=== PATIENT | male | born 1955 | race Caucasian/White ===

== ENCOUNTER 2022-03-13 14:55 | Inpatient (IN) | payer MEDICARE ==
[2022-03-13] VITALS (22 sets, daily range): BP systolic 83–116; BP diastolic 48–96
[~2022-03-13] VITALS: Ht 188 cm; Wt 77.1 kg
[2022-03-13 16:20] LABS: BASOPHILS % 0.5 % (0.0-1.0); EOSINOPHILS # (AUTO) 0.2 (0.0-0.4); EOSINOPHILS % 4.1 % (0.0-6.0); HEMATOCRIT 23.9 % (38.2-49.6); HEMOGLOBIN 7.3 g/dL (14.0-18.0); LYMPHOCYTES # (AUTO) 0.4 (1.0-3.2); LYMPHOCYTES % 7.9 % (18.0-39.1); MEAN CORPUSCULAR HEMOGLOBIN 34.3 pg (28-32); MEAN CORPUSCULAR HGB CONC 30.5 g/dL (31-35); MEAN CORPUSCULAR VOLUME 112.2 fL (81-99); MONOCYTES # (AUTO) 0.4 (0.2-0.8); MONOCYTES % 8.6 % (4.4-11.3); NEUTROPHILS # (AUTO) 3.5 (2.1-6.9); NEUTROPHILS % 78.4 % (38.7-80.0); PLATELET COUNT 67 x10e3/uL (140-360); RED BLOOD COUNT 2.13 x10e6/uL (4.3-5.7); RED CELL DISTRIBUTION WIDTH 14.7 % (11.7-14.4)
[2022-03-13 16:35] LABS: INR 1.3; PARTIAL THROMBOPLASTIN TIME 32.9 seconds (23.8-35.5); PROTHROMBIN TIME 17.3 seconds (11.9-14.5)
[2022-03-13 16:42] LABS: ALBUMIN 3.1 g/dL (3.5-5.0); ANION GAP 21.2 mmol/L (8-16); CALCIUM 8.2 mg/dL (8.4-10.2); CREATININE, SERUM 7.28 mg/dL (0.72-1.25); POTASSIUM 5.2 mmol/L (3.5-5.1)
[2022-03-13] MEDS ORDERED: HEPARIN SOD (PORCINE) 1000 UNIT/ML 30ML ONE (16:44)
[2022-03-13] MEDS ORDERED: LIDOCAINE HCL 2% LOCAL 20 ML VIAL ONE (16:44)
[2022-03-13] MEDS ORDERED: HEPARIN SOD/SOD CHLORIDE 2,000 ML ONE (16:45)
[2022-03-13] MEDS: PROPOFOL IV EMULSION 10MG/ML 100 ML IV SCH ×2 (16:45→23:40)
[2022-03-13] MEDS ORDERED: SODIUM CHLORIDE 0.9% 1000ML 1,000 ML ONE (16:45)
[2022-03-13] MEDS ORDERED: NITROGLYCERIN/D5W 200 MCG/ML 250 ML ONE (16:45)
[2022-03-13] MEDS ORDERED: IOPAMIDOL 370 MG/ML 100 ML INFUS..BTL INJ ONE ×2 (16:45→17:34)
[2022-03-13] MEDS: Pantoprazole IV 40 MG in SODIUM CHLORIDE 0.9% 50ML 50 ML IV SCH ×2 (16:45→22:50)
[2022-03-13 16:55] LABS: CREATINE KINASE MB 11.1 ng/mL (0-5.0)
[2022-03-13] MEDS ORDERED: SODIUM CHLORIDE 0.9% 250ML 250 ML IV ONE (17:00)
[2022-03-13] MEDS ORDERED: FENTANYL CITRATE/PF 100MCG/2 ML INJ ONE (17:01)
[2022-03-13] MEDS ORDERED: FUROSEMIDE INJ 10 MG/ML 4 ML VIAL ONE (17:01)
[2022-03-13] MEDS ORDERED: MIDAZOLAM HCL 2 MG/2 ML VIAL ONE (17:01)
[2022-03-13] MEDS ORDERED: NOREPINEPHRINE 8 MG/D5W 250 ML 0 ML ONE (17:17)
[2022-03-13] MEDS: PIPERACILLIN/TAZOBACTAM 2.25 GM in SODIUM CHLORIDE 0.9% 50ML 50 ML IV SCH (18:00)
[2022-03-13] MEDS ORDERED: ACETAMINOPHEN 325 MG TAB PO PRN (18:15)
[2022-03-13] MEDS ORDERED: SODIUM CHLORIDE 0.9% 1000ML 2,000 ML ONE (18:54)
[2022-03-13] MEDS ORDERED: SODIUM CHLORIDE 0.9% 1000ML 2,000 ML IV PRN (19:30)
[2022-03-14] VITALS (77 sets, daily range): BP systolic 96–130; BP diastolic 46–86
[2022-03-14] MEDS: PIPERACILLIN/TAZOBACTAM 2.25 GM in SODIUM CHLORIDE 0.9% 50ML 50 ML IV SCH ×3 (01:05→17:40)
[2022-03-14 01:34] LABS: HEMATOCRIT 24.3 % (38.2-49.6)
[2022-03-14 01:55] LABS: CREATINE KINASE MB 8.3 ng/mL (0-5.0)
[2022-03-14] MEDS: Pantoprazole IV 40 MG in SODIUM CHLORIDE 0.9% 50ML 50 ML IV SCH ×5 (02:37→23:49)
[2022-03-14] MEDS ORDERED: SODIUM CHLORIDE 0.9% 250ML 250 ML IV PRN (03:45)
[2022-03-14 05:43] LABS: BASOPHILS % 0.5 % (0.0-1.0); EOSINOPHILS # (AUTO) 0.1 (0.0-0.4); EOSINOPHILS % 2.8 % (0.0-6.0); HEMATOCRIT 24.6 % (38.2-49.6); LYMPHOCYTES # (AUTO) 0.6 (1.0-3.2); LYMPHOCYTES % 13.2 % (18.0-39.1); MEAN CORPUSCULAR HEMOGLOBIN 34.2 pg (28-32); MEAN CORPUSCULAR HGB CONC 32.9 g/dL (31-35); MEAN CORPUSCULAR VOLUME 103.8 fL (81-99); MONOCYTES # (AUTO) 0.5 (0.2-0.8); MONOCYTES % 12.7 % (4.4-11.3); NEUTROPHILS % 70.6 % (38.7-80.0); PLATELET COUNT 51 x10e3/uL (140-360); RED BLOOD COUNT 2.37 x10e6/uL (4.3-5.7); RED CELL DISTRIBUTION WIDTH 17.2 % (11.7-14.4)
[2022-03-14 05:53] LABS: HEMOGLOBIN 8.1 g/dL (14.0-18.0)
[2022-03-14 06:06] LABS: ALBUMIN 2.8 g/dL (3.5-5.0); ANION GAP 16.7 mmol/L (8-16); CALCIUM 7.9 mg/dL (8.4-10.2); CREATININE, SERUM 5.65 mg/dL (0.72-1.25); MAGNESIUM 2.1 MG/DL (1.3-2.1); POTASSIUM 4.7 mmol/L (3.5-5.1)
[2022-03-14 06:28] LABS: CREATINE KINASE MB 5.9 ng/mL (0-5.0)
[2022-03-14 07:08] LABS: FERRITIN 707.15 ng/mL (21.81-274.66); THYROID STIMULATING HORMONE 1.624 uIU/mL (0.350-4.940)
[2022-03-14 08:44] LABS: ABG PCO2 29 mmHg (35-45); ABG PH 7.59 (7.35-7.45); ABG PO2 280 mmHg (80-105)
[2022-03-14 08:45] LABS: ABG HCO3 28 mmol/L (22-26); ABG TCO2 29
[2022-03-14 08:58] LABS: EOSINOPHILS % (MANUAL) 2 % (0-7); LYMPHOCYTES % (MANUAL) 10 % (19-48); MONOCYTES % (MANUAL) 9 % (3.4-9.0); NEUTROPHILS % (MANUAL) 78 % (40-74)
[2022-03-14 09:00] LABS: ANISOCYTOSIS MODERATE; PLATELET ESTIMATE MODERATELY DECREASED; PLATELET MORPHOLOGY COMMENT NORMAL; RBC MORPHOLOGY COMMENT ABNORMAL
[2022-03-14 09:01] LABS: OVALOCYTES FEW
[2022-03-14] MEDS ORDERED: SODIUM CHLORIDE 0.9% 250ML 250 ML IV ONE (10:15)
[2022-03-14 15:15] LABS: HEMATOCRIT 29.5 % (38.2-49.6); HEMOGLOBIN 9.7 g/dL (14.0-18.0)
[2022-03-14] MEDS: LATANOPROST(OPTH) 2.5 ML BTL OP SCH (21:18)
[2022-03-15] VITALS (25 sets, daily range): BP systolic 86–126; BP diastolic 51–68
[2022-03-15 00:27] LABS: HEMATOCRIT 28.3 % (38.2-49.6); HEMOGLOBIN 9.2 g/dL (14.0-18.0)
[2022-03-15] MEDS: PIPERACILLIN/TAZOBACTAM 2.25 GM in SODIUM CHLORIDE 0.9% 50ML 50 ML IV SCH ×3 (02:00→17:07)
[2022-03-15] MEDS: Pantoprazole IV 40 MG in SODIUM CHLORIDE 0.9% 50ML 50 ML IV SCH ×5 (05:00→23:45)
[2022-03-15 06:18] LABS: BASOPHILS % 0.9 % (0.0-1.0); EOSINOPHILS # (AUTO) 0.3 (0.0-0.4); EOSINOPHILS % 5.6 % (0.0-6.0); HEMATOCRIT 30.1 % (38.2-49.6); HEMOGLOBIN 9.6 g/dL (14.0-18.0); LYMPHOCYTES # (AUTO) 0.5 (1.0-3.2); LYMPHOCYTES % 11.2 % (18.0-39.1); MEAN CORPUSCULAR HGB CONC 31.9 g/dL (31-35); MEAN CORPUSCULAR VOLUME 106.7 fL (81-99); MONOCYTES # (AUTO) 0.6 (0.2-0.8); MONOCYTES % 13.3 % (4.4-11.3); NEUTROPHILS # (AUTO) 3.2 (2.1-6.9); NEUTROPHILS % 68.8 % (38.7-80.0); RED BLOOD COUNT 2.82 x10e6/uL (4.3-5.7); RED CELL DISTRIBUTION WIDTH 17.8 % (11.7-14.4)
[2022-03-15 06:26] LABS: PLATELET COUNT 46 x10e3/uL (140-360)
[2022-03-15 07:24] LABS: ALBUMIN 3.2 g/dL (3.5-5.0); ANION GAP 17.4 mmol/L (8-16); CALCIUM 8.1 mg/dL (8.4-10.2); CREATININE, SERUM 5.17 mg/dL (0.72-1.25); POTASSIUM 4.4 mmol/L (3.5-5.1)
[2022-03-15 07:52] LABS: INR 1.25; PROTHROMBIN TIME 16.8 seconds (11.9-14.5)
[2022-03-15] MEDS ORDERED: KETOROLAC TROMETHAMINE 30 MG/ML VIAL IV ONE (11:00)
[2022-03-15] MEDS ORDERED: LIDOCAINE HCL 2% LOCAL INJ 5 ML SDV VIAL INJ ONE (11:54)
[2022-03-15] MEDS ORDERED: PROPOFOL IV EMULSION 10 MG/ML 20 ML VIAL ONE (11:54)
[2022-03-15] MEDS ORDERED: SODIUM CHLORIDE 0.9% 250ML 250 ML ONE (12:13)
[2022-03-15] MEDS ORDERED: EPOETIN ALFA-EPBX 10,000 UNIT/ML VIAL SC ONE (12:35)
[2022-03-15] MEDS: LATANOPROST(OPTH) 2.5 ML BTL OP SCH (21:19)
[2022-03-16] VITALS (43 sets, daily range): BP systolic 54–141; BP diastolic 44–85
[2022-03-16] MEDS: PIPERACILLIN/TAZOBACTAM 2.25 GM in SODIUM CHLORIDE 0.9% 50ML 50 ML IV SCH ×3 (02:26→18:34)
[2022-03-16] MEDS: Pantoprazole IV 40 MG in SODIUM CHLORIDE 0.9% 50ML 50 ML IV SCH ×4 (04:45→20:55)
[2022-03-16 05:40] LABS: BASOPHILS % 0.4 % (0.0-1.0); EOSINOPHILS # (AUTO) 0.3 (0.0-0.4); EOSINOPHILS % 5.6 % (0.0-6.0); HEMATOCRIT 29.1 % (38.2-49.6); HEMOGLOBIN 9.5 g/dL (14.0-18.0); LYMPHOCYTES # (AUTO) 0.6 (1.0-3.2); LYMPHOCYTES % 11.6 % (18.0-39.1); MEAN CORPUSCULAR HEMOGLOBIN 34.4 pg (28-32); MEAN CORPUSCULAR HGB CONC 32.6 g/dL (31-35); MEAN CORPUSCULAR VOLUME 105.4 fL (81-99); MONOCYTES # (AUTO) 0.7 (0.2-0.8); NEUTROPHILS # (AUTO) 3.8 (2.1-6.9); PLATELET COUNT 54 x10e3/uL (140-360); RED BLOOD COUNT 2.76 x10e6/uL (4.3-5.7); RED CELL DISTRIBUTION WIDTH 16.5 % (11.7-14.4)
[2022-03-16 06:02] LABS: ALBUMIN 2.9 g/dL (3.5-5.0); ALBUMIN/GLOBULIN RATIO 0.9 (0.8-2.0); ANION GAP 19.2 mmol/L (8-16); CALCIUM 7.5 mg/dL (8.4-10.2); CREATININE, SERUM 6.63 mg/dL (0.72-1.25); POTASSIUM 5.2 mmol/L (3.5-5.1)
[2022-03-16] MEDS ORDERED: NOREPINEPHRINE INJ 4MG/4ML 4 ML ONE (07:44)
[2022-03-16] MEDS ORDERED: EPINEPHRINE HCL 1:1000 1ML 1 MG/ML AMP ONE (07:45)
[2022-03-16] MEDS ORDERED: SODIUM CHLORIDE 0.9% 500ML 500 ML ONE ×2 (07:45)
[2022-03-16] MEDS ORDERED: EPINEPHRINE HCL SYRINGE ONE (08:14)
[2022-03-16] MEDS ORDERED: NOREPINEPHRINE 8 MG/D5W 250 ML 250 ML ONE (08:19)
[2022-03-16] MEDS ORDERED: SODIUM CHLORIDE 0.9% 1000ML 1,000 ML ONE (08:27)
[2022-03-16] MEDS ORDERED: FENTANYL CITRATE/PF 100MCG/2 ML INJ ONE (12:56)
[2022-03-16] MEDS ORDERED: KETAMINE HCL INJ 50 MG/ML 10 ML VIAL ONE (12:56)
[2022-03-16] MEDS ORDERED: SODIUM CHLORIDE 0.9% 50ML 50 ML ONE (18:40)
[2022-03-16] MEDS: LATANOPROST(OPTH) 2.5 ML BTL OP SCH (20:55)
[2022-03-17] VITALS (23 sets, daily range): BP systolic 108–137; BP diastolic 57–98
[2022-03-17] MEDS: PIPERACILLIN/TAZOBACTAM 2.25 GM in SODIUM CHLORIDE 0.9% 50ML 50 ML IV SCH ×3 (01:53→19:47)
[2022-03-17] MEDS: Pantoprazole IV 40 MG in SODIUM CHLORIDE 0.9% 50ML 50 ML IV SCH ×5 (01:53→21:50)
[2022-03-17 05:30] LABS: BASOPHILS % 1.1 % (0.0-1.0); EOSINOPHILS # (AUTO) 0.2 (0.0-0.4); EOSINOPHILS % 5.6 % (0.0-6.0); HEMATOCRIT 28.6 % (38.2-49.6); HEMOGLOBIN 9.3 g/dL (14.0-18.0); LYMPHOCYTES # (AUTO) 0.4 (1.0-3.2); LYMPHOCYTES % 10.1 % (18.0-39.1); MEAN CORPUSCULAR HEMOGLOBIN 34.1 pg (28-32); MEAN CORPUSCULAR HGB CONC 32.5 g/dL (31-35); MEAN CORPUSCULAR VOLUME 104.8 fL (81-99); MONOCYTES # (AUTO) 0.4 (0.2-0.8); MONOCYTES % 10.7 % (4.4-11.3); NEUTROPHILS # (AUTO) 2.7 (2.1-6.9); PLATELET COUNT 50 x10e3/uL (140-360); RED BLOOD COUNT 2.73 x10e6/uL (4.3-5.7); RED CELL DISTRIBUTION WIDTH 15.9 % (11.7-14.4)
[2022-03-17 05:49] LABS: ANION GAP 16.3 mmol/L (8-16); CALCIUM 7.8 mg/dL (8.4-10.2); CREATININE, SERUM 5.2 mg/dL (0.72-1.25); POTASSIUM 4.3 mmol/L (3.5-5.1)
[2022-03-17] MEDS ORDERED: DEXTROSE 50% SYRINGE 50 ML IV PRN (09:00)
[2022-03-17] MEDS ORDERED: ASPIRIN ENTERI325 MG PO (10:32)
[2022-03-17] MEDS ORDERED: GABAPENTIN100 MG PO (10:32)
[2022-03-17] MEDS ORDERED: SERTRALINE HCL100 MG PO (10:32)
[2022-03-17] MEDS ORDERED: CALCITRIOL0.25 MCG PO (10:32)
[2022-03-17] MEDS ORDERED: ATORVASTATIN CA20 MG PO (10:32)
[2022-03-17] MEDS ORDERED: LATANOPROST2.5 ML OP (10:32)
[2022-03-17] MEDS ORDERED: ESZOPICLONE3 MG (10:32)
[2022-03-17] MEDS ORDERED: BACLOFEN10 MG PO (10:32)
[2022-03-17] MEDS ORDERED: LEVOTHYROXINE75 MCG PO (10:32)
[2022-03-17] MEDS ORDERED: CARVEDILOL3.125 MG PO (10:32)
[2022-03-17] MEDS ORDERED: ONDANSETRON ODT8 MG PO (10:32)
[2022-03-17] MEDS ORDERED: CLOPIDOGREL75 MG PO (10:32)
[2022-03-17] MEDS: INSULIN LISPRO 100 UNIT/1 ML 3ML VIAL SQ SCH ×3 (11:37→21:03)
[2022-03-17 11:47] LABS: INR 1.39; PARTIAL THROMBOPLASTIN TIME 32.7 seconds (23.8-35.5); PROTHROMBIN TIME 18.2 seconds (11.9-14.5)
[2022-03-17] MEDS: CARVEDILOL 3.125 MG TAB PO SCH (19:47)
[2022-03-17] MEDS: LATANOPROST(OPTH) 2.5 ML BTL OP SCH (20:23)
[2022-03-17] MEDS: ATORVASTATIN 40 MG TAB PO SCH (21:02)
[2022-03-17] MEDS: INSULIN GLARGINE 100 UNITS/ML VIAL SQ SCH (21:03)
[2022-03-18] VITALS (13 sets, daily range): BP systolic 114–133; BP diastolic 52–75
[2022-03-18] MEDS: Pantoprazole IV 40 MG in SODIUM CHLORIDE 0.9% 50ML 50 ML IV SCH ×5 (02:10→20:39)
[2022-03-18] MEDS: PIPERACILLIN/TAZOBACTAM 2.25 GM in SODIUM CHLORIDE 0.9% 50ML 50 ML IV SCH ×3 (02:10→17:45)
[2022-03-18 05:12] LABS: BASOPHILS % 0.8 % (0.0-1.0); EOSINOPHILS # (AUTO) 0.4 (0.0-0.4); HEMATOCRIT 29.5 % (38.2-49.6); HEMOGLOBIN 9.5 g/dL (14.0-18.0); LYMPHOCYTES # (AUTO) 0.5 (1.0-3.2); MEAN CORPUSCULAR HEMOGLOBIN 33.9 pg (28-32); MEAN CORPUSCULAR HGB CONC 32.2 g/dL (31-35); MEAN CORPUSCULAR VOLUME 105.4 fL (81-99); MONOCYTES # (AUTO) 0.5 (0.2-0.8); NEUTROPHILS # (AUTO) 2.6 (2.1-6.9); NEUTROPHILS % 65.4 % (38.7-80.0); RED CELL DISTRIBUTION WIDTH 15.7 % (11.7-14.4)
[2022-03-18 05:29] LABS: ALBUMIN 2.7 g/dL (3.5-5.0); ALBUMIN/GLOBULIN RATIO 0.8 (0.8-2.0); ANION GAP 18.4 mmol/L (8-16); CALCIUM 7.6 mg/dL (8.4-10.2); CREATININE, SERUM 6.74 mg/dL (0.72-1.25); POTASSIUM 4.4 mmol/L (3.5-5.1)
[2022-03-18 05:48] LABS: PLATELET COUNT 49 x10e3/uL (140-360)
[2022-03-18] MEDS: IRON SUCROSE 100 MG in SODIUM CHLORIDE 0.9% 100 ML 100 ML IV SCH (08:56)
[2022-03-18] MEDS: INSULIN LISPRO 100 UNIT/1 ML 3ML VIAL SQ SCH ×4 (08:56→20:45)
[2022-03-18] MEDS: ASPIRIN 81 MG ENTERIC COATED PO SCH (08:56)
[2022-03-18] MEDS: CARVEDILOL 3.125 MG TAB PO SCH ×2 (08:57→17:37)
[2022-03-18] MEDS: SENNOSIDES 8.6 MG TAB PO SCH (09:00)
[2022-03-18] MEDS: DOCUSATE SODIUM 100 MG CAP PO SCH (09:00)
[2022-03-18] MEDS: LATANOPROST(OPTH) 2.5 ML BTL OP SCH (20:45)
[2022-03-18] MEDS: ATORVASTATIN 40 MG TAB PO SCH (20:45)
[2022-03-18] MEDS: INSULIN GLARGINE 100 UNITS/ML VIAL SQ SCH (21:08)
[2022-03-19] VITALS (7 sets, daily range): BP systolic 108–132; BP diastolic 59–92
[2022-03-19] MEDS: PIPERACILLIN/TAZOBACTAM 2.25 GM in SODIUM CHLORIDE 0.9% 50ML 50 ML IV SCH ×3 (00:54→17:49)
[2022-03-19] MEDS: Pantoprazole IV 40 MG in SODIUM CHLORIDE 0.9% 50ML 50 ML IV SCH ×5 (00:54→20:45)
[2022-03-19 07:16] LABS: BASOPHILS # (AUTO) 0.1 (0.0-0.1); BASOPHILS % 1.1 % (0.0-1.0); EOSINOPHILS # (AUTO) 0.6 (0.0-0.4); EOSINOPHILS % 11.2 % (0.0-6.0); HEMATOCRIT 30.4 % (38.2-49.6); HEMOGLOBIN 9.9 g/dL (14.0-18.0); LYMPHOCYTES # (AUTO) 0.6 (1.0-3.2); MEAN CORPUSCULAR HEMOGLOBIN 34.4 pg (28-32); MEAN CORPUSCULAR HGB CONC 32.6 g/dL (31-35); MEAN CORPUSCULAR VOLUME 105.6 fL (81-99); MONOCYTES # (AUTO) 0.5 (0.2-0.8); MONOCYTES % 10.1 % (4.4-11.3); NEUTROPHILS # (AUTO) 3.5 (2.1-6.9); NEUTROPHILS % 66.4 % (38.7-80.0); PLATELET COUNT 59 x10e3/uL (140-360); RED BLOOD COUNT 2.88 x10e6/uL (4.3-5.7); RED CELL DISTRIBUTION WIDTH 15.7 % (11.7-14.4)
[2022-03-19 07:38] LABS: ALBUMIN/GLOBULIN RATIO 0.8 (0.8-2.0); CALCIUM 7.8 mg/dL (8.4-10.2); CREATININE, SERUM 8.28 mg/dL (0.72-1.25)
[2022-03-19] MEDS: INSULIN LISPRO 100 UNIT/1 ML 3ML VIAL SQ SCH ×4 (08:30→20:45)
[2022-03-19] MEDS ORDERED: SODIUM CHLORIDE 0.9% 50ML 50 ML ONE (08:36)
[2022-03-19] MEDS: ASPIRIN 81 MG ENTERIC COATED PO SCH (09:00)
[2022-03-19] MEDS: CARVEDILOL 3.125 MG TAB PO SCH ×2 (09:00→17:00)
[2022-03-19] MEDS: SENNOSIDES 8.6 MG TAB PO SCH (09:00)
[2022-03-19] MEDS: DOCUSATE SODIUM 100 MG CAP PO SCH (09:00)
[2022-03-19] MEDS ORDERED: PANTOPRAZOLE SO40 MG PO (10:20)
[2022-03-19] MEDS ORDERED: LIPITOR20 MG PO (10:20)
[2022-03-19] MEDS: IRON SUCROSE 100 MG in SODIUM CHLORIDE 0.9% 100 ML 100 ML IV SCH (12:37)
[2022-03-19] MEDS ORDERED: ALBUMIN 25% 12.5GM 50ML 0 ML IV ONE (14:53)
[2022-03-19] MEDS: LATANOPROST(OPTH) 2.5 ML BTL OP SCH (20:44)
[2022-03-19] MEDS: ATORVASTATIN 40 MG TAB PO SCH (20:44)
[2022-03-19] MEDS: INSULIN GLARGINE 100 UNITS/ML VIAL SQ SCH (20:45)
[2022-03-20] VITALS: BP 144/70
[2022-03-20] MEDS: PIPERACILLIN/TAZOBACTAM 2.25 GM in SODIUM CHLORIDE 0.9% 50ML 50 ML IV SCH ×2 (01:50→09:54)
[2022-03-20 04:00] VITALS: BP 161/84
[2022-03-20] MEDS ORDERED: PANTOPRAZOLE SOD 40 MG TABEC PO SCH (07:30)
[2022-03-20] MEDS: INSULIN LISPRO 100 UNIT/1 ML 3ML VIAL SQ SCH (07:30)
[2022-03-20 08:00] VITALS: BP 135/72
[2022-03-20 09:00] VITALS: BP 135/72
[2022-03-20] MEDS: DOCUSATE SODIUM 100 MG CAP PO SCH (09:54)
[2022-03-20] MEDS: CARVEDILOL 3.125 MG TAB PO SCH (09:54)
[2022-03-20] MEDS: SENNOSIDES 8.6 MG TAB PO SCH (09:54)
[2022-03-20] MEDS: ASPIRIN 81 MG ENTERIC COATED PO SCH (09:54)
[2022-03-20] MEDS: IRON SUCROSE 100 MG in SODIUM CHLORIDE 0.9% 100 ML 100 ML IV SCH (09:54)
[2022-03-20] MEDS ORDERED: PANTOPRAZOLE SO40 MG PO (11:32)
[2022-03-20] MEDS ORDERED: LIPITOR20 MG PO (11:33)
[2022-03-20 11:56] VITALS: BP 127/69
== END 2022-03-20 11:56 | disposition home health service (06) | DRG 208 ==
LOC: ICU 15:35 → MED/SURG2 03-18 13:16
PROVIDERS: ADMIT Internal Medicine; ATTEND Internal Medicine
PROC: 4A023N7 Measurement of Cardiac Sampling and Pressure, Left Heart, Percutaneous Approach (ICD-10-PCS; principal; 2022-03-13)
PROC: 5A1935Z Respiratory Ventilation, Less than 24 Consecutive Hours (ICD-10-PCS; 2022-03-13)
PROC: B2111ZZ Fluoroscopy of Multiple Coronary Arteries using Low Osmolar Contrast (ICD-10-PCS; 2022-03-13)
PROC: B2151ZZ Fluoroscopy of Left Heart using Low Osmolar Contrast (ICD-10-PCS; 2022-03-13)
PROC: 02HV33Z Insertion of Infusion Device into Superior Vena Cava, Percutaneous Approach (ICD-10-PCS; 2022-03-13)
PROC: 5A1D70Z Performance of Urinary Filtration, Intermittent, Less than 6 Hours Per Day (ICD-10-PCS; 2022-03-13)
PROC: 30233N1 Transfusion of Nonautologous Red Blood Cells into Peripheral Vein, Percutaneous Approach (ICD-10-PCS; 2022-03-13)
PROC: 30233L1 Transfusion of Nonautologous Fresh Plasma into Peripheral Vein, Percutaneous Approach (ICD-10-PCS; 2022-03-14)
PROC: 30233K1 Transfusion of Nonautologous Frozen Plasma into Peripheral Vein, Percutaneous Approach (ICD-10-PCS; 2022-03-14)
PROC: 30233R1 Transfusion of Nonautologous Platelets into Peripheral Vein, Percutaneous Approach (ICD-10-PCS; 2022-03-15)
PROC: 0DJ08ZZ Inspection of Upper Intestinal Tract, Via Natural or Artificial Opening Endoscopic (ICD-10-PCS; 2022-03-16)
DX: J69.0 Pneumonitis due to inhalation of food and vomit (principal); N18.6 End stage renal disease; I46.8 Cardiac arrest due to other underlying condition; I85.01 Esophageal varices with bleeding; J96.01 Acute respiratory failure with hypoxia; D62 Acute posthemorrhagic anemia; I13.2 Hypertensive heart and chronic kidney disease with heart failure and with stage 5 chronic kidney disease, or end stage renal disease; I50.22 Chronic systolic (congestive) heart failure; T82.855A Stenosis of coronary artery stent, initial encounter; K76.6 Portal hypertension; L97.429 Non-pressure chronic ulcer of left heel and midfoot with unspecified severity; T88.59XA Other complications of anesthesia, initial encounter; I25.5 Ischemic cardiomyopathy; I25.10 Atherosclerotic heart disease of native coronary artery without angina pectoris; E11.22 Type 2 diabetes mellitus with diabetic chronic kidney disease; K31.89 Other diseases of stomach and duodenum; K44.9 Diaphragmatic hernia without obstruction or gangrene; E11.621 Type 2 diabetes mellitus with foot ulcer; K74.60 Unspecified cirrhosis of liver; E87.5 Hyperkalemia; D63.1 Anemia in chronic kidney disease; I73.9 Peripheral vascular disease, unspecified; R16.1 Splenomegaly, not elsewhere classified; Z99.2 Dependence on renal dialysis; Z87.11 Personal history of peptic ulcer disease; Z95.810 Presence of automatic (implantable) cardiac defibrillator; Z89.432 Acquired absence of left foot; Z89.411 Acquired absence of right great toe; Z89.422 Acquired absence of other left toe(s); Z89.421 Acquired absence of other right toe(s); Z79.82 Long term (current) use of aspirin; Z20.822 Contact with and (suspected) exposure to COVID-19
CPT/HCPCS: 36415; 43239; 71045; 76705; 76937; 77001; 80048; 80053; 82550; 82553; 82607; 82728; 82746; 82805; 82948; 83540; 83735; 84443; 84466; 84484; 85014; 85018; 85025; 85045; 85384; 85610; 85730; 86705; 86706; 86850; 86900; 86920; 87040; 87340; 90962; 93005; 93306; 93458; 94003; 94640; 94799; 96372; 97139; 99152; 99153; 99251; C1760; C1769; C1887; J0171; J1644; J1756; J1815; J1885; J1940; J2001; J2250; J2543; J3010; J7030; J7040; J7050; P9016; P9017; P9034; Q9967; U0002